=== PATIENT | male | born 1990 | race Caucasian/White ===

== ENCOUNTER 2020-02-22 15:59 | Emergency (ER) | payer OTHER ==
[~2020-02-22] VITALS: Ht 182.9 cm; Wt 129.5 kg
[~2020-02-22 15:59] MED LIST: DOXYCYCLINE 10100 MG PO; NORCO 325 MG-51 TAB PO
[2020-02-22 16:08] VITALS: TEMP 98
[2020-02-22] MEDS ORDERED: WELLBUTRIN SR150 M1 PO (16:30)
[2020-02-22] MEDS ORDERED: MINIPRESS 1M1 MG/CAP PO (16:30)
[2020-02-22] MEDS ORDERED: DESYREL 100MG100 MG PO (16:30)
[2020-02-22] MEDS ORDERED: LAMICTAL150 MG PO (16:31)
[2020-02-22 17:24] LABS: BASO % 0.4 % (0.0-2.0); EOS # 0.1 (0.0-0.7); EOS % 1.4 % (0-4.0); GRAN # 5.8 (1.4-6.5); GRAN % 69.1 % (42.2-75.2); HEMATOCRIT 41.6 % (42.0-52.0); HEMOGLOBIN 14.6 g/dl (13.5-18.0); LYMPH # 1.7 (1.2-3.4); LYMPH % 20.7 % (20.0-51.0); MEAN CELL VOLUME 86 fl (80.0-100.0); MEAN CORPUSCULAR HEMOGLOBIN 30 pg (27.0-31.0); MEAN CORPUSCULAR HGB CONC 35 g/dl (33.0-37.0); MEAN PLATELET VOLUME 9.7 fl (7.4-10.4); MONO # 0.7 (0.1-0.6); PLATELET COUNT 219 K/mm3 (130-400); RED BLOOD COUNT 4.85 M/mm3 (4.20-5.60); REDCELL DISTRIBUTION WIDTH-CV 12.6 % (11.5-14.5)
[2020-02-22] MEDS ORDERED: MEDROL 4MG DOSPA4 MG PO (18:19)
[2020-02-22 19:17] VITALS: BP 126/79; PULSE 91
== END 2020-02-22 19:20 | disposition home or self-care (01) ==
LOC: COL.ER 15:59
PROVIDERS: Physician Assistant
DX: U07.1 COVID-19 (principal); Z87.891 Personal history of nicotine dependence
CPT/HCPCS: J1885; J7030